=== PATIENT | male | born 1955 | race Caucasian/White ===

== ENCOUNTER → 2017-04-28 | Day surgery (SDC) | payer OTHER ==
[~2017-04-28] MED LIST: BYSTOLIC5 MG PO; OLMESARTAN MEDO40 MG; PRAVASTATIN SOD40 MG PO
--- NOTE | ~2017-04-28 | OR ---
Unit #: [id number] #: [id number] Patient: TONY BURNS [id number] [address] [place], [place] [address] [id number] MR#: [id number] NAME: TONY BURNS ROOM: Date of Procedure: 04/28/2017 Admission Date: 04/28/2017 Surgeon: James Ybarra M.D. : 1955 Attending Physician: James Ybarra M.D. Referring Physician: James Ybarra M.D. Primary Care Physician: Viry Hansen M.D. OPERATIVE REPORT PRIMARY CARE PHYSICIAN Viry Hansen M.D. PREOPERATIVE DIAGNOSIS Colorectal cancer screening in an average-risk patient. PROCEDURE PERFORMED Colonoscopy up to cecum and terminal ileum with excellent preparation and good visualization. POSTOPERATIVE DIAGNOSES Small internal hemorrhoids. Otherwise, normal examination up to cecum. The quality of prep was good. No polyps were seen. RECOMMENDATIONS Repeat colonoscopy in 10 years. SEDATION USED MAC. DESCRIPTION OF PROCEDURE Following detailed explanation of the potential risks and complications of a colonoscopy, namely perforation, bleeding, and complications related to sedation, the patient was brought to GI lab and laid in the left lateral decubitus position. A digital rectal examination was performed, which was normal. Lubricated tip of Olympus video colonoscope was inserted through the anus and advanced under direct vision. The scope was advanced and passed up to sigmoid into descending colon. No diverticula were seen in this area. The scope tip was then navigated all the way up to cecum with visualization of the ileocecal valve and appendiceal orifice. Preparation was excellent with good visualization and photodocumentation was obtained. The quality of the prep was excellent. Last few inches of terminal ileum also visualized after intubation of the ileocecal valve and appeared normal. Successive segments of the colonic mucosa were examined upon withdrawal and appeared unremarkable. There being no polyps, mass lesions, or AVMs. The patient did not have any diverticulosis; however, small internal hemorrhoids were noted at the anal verge seen on retroflexion as well as an antegrade examination. The scope was then withdrawn. The patient returned to the recovery area. He tolerated the procedure without any postprocedure complications. Unit #: [id number] #: [id number] Patient: TONY BURNS Dictated by... Harleen Price/tonia TD: 04/28/2017 13:14 JOB #: [id number] CC: . OPERATIVE REPORT Page 1 of 1 X James Ybarra MD X PROCEDURE OPERATIVE NOTE
== END | disposition home or self-care (01) ==
LOC: COPS 04-24 09:30
DX: Z12.11 Encounter for screening for malignant neoplasm of colon (principal); K64.9 Unspecified hemorrhoids; I10 Essential (primary) hypertension; E78.5 Hyperlipidemia, unspecified; Z87.01 Personal history of pneumonia (recurrent); Z88.0 Allergy status to penicillin; Z79.899 Other long term (current) drug therapy; Z98.890 Other specified postprocedural states